=== PATIENT | female | born 1940 | race American Indian/Alaskan Native ===

== ENCOUNTER 2016-07-20 11:50 | Outpatient (CLI) | payer MEDICARE ==
--- NOTE | 2016-07-20 15:11 | Ultrasound Report ---
Thyroid ultrasound. History: The patient has a history of previous thyroid radiation. There are no prior studies available for comparison. Findings: The thyroid gland is quite small. The right lobe measures 3.7 x 0.8 x 0.7 cm. The left lobe measures 2.8 x 0.8 x 0.6 cm. No masses or other significant findings are seen. Impression: Thyroid atrophy with no focal abnormalities.
== END 2016-07-20 11:51 | disposition home or self-care (01) ==
LOC: SPVIMAG 11:50
PROVIDERS: ATTEND Internal Medicine Hematology & Oncology
DX: E03.4 Atrophy of thyroid (acquired) (principal)
CPT/HCPCS: 76536

== ENCOUNTER 2016-07-24 14:07 | Outpatient (CLI) | payer MEDICARE ==
--- NOTE | 2016-07-24 15:00 | XRay Report ---
Right shoulder 3 views: History: Right shoulder pain. Findings: Arthritic changes are noted at the a.c. joint and inferior aspect of the glenohumeral joint. No fracture dislocation or soft tissue calcification. Impression: Arthritic changes a.c. joint and glenohumeral joint.
== END 2016-07-24 14:08 | disposition home or self-care (01) ==
LOC: SPVWC 14:07
PROVIDERS: ATTEND Internal Medicine Hematology & Oncology
DX: M25.511 Pain in right shoulder (principal)

== ENCOUNTER 2016-11-06 10:14 | Outpatient (CLI) | payer MEDICARE ==
--- NOTE | 2016-11-06 14:27 | Mammography Report ---
BILATERAL DIGITAL SCREENING MAMMOGRAM with CAD: 11/06/16 10:14:00 CLINICAL: Routine screening. COMPARISON:03/16/15 FINDINGS: The breasts are heterogeneously dense, which may obscure small masses. No mass, architectural distortion or suspicious calcifications. IMPRESSION: No mammographic evidence of malignancy. BI-RADS CATEGORY: 1 - - Negative RECOMMENDATION: Routine mammographic screening in one year. COMMENT: Patient follow-up letters are generated by our [employer] application.
== END 2016-11-06 10:15 | disposition home or self-care (01) ==
LOC: SPVWC 10:14
PROVIDERS: ATTEND Internal Medicine Hematology & Oncology
DX: Z12.31 Encounter for screening mammogram for malignant neoplasm of breast (principal)
CPT/HCPCS: 77067; G0202

== ENCOUNTER 2017-12-27 07:12 | Outpatient (CLI) | payer MEDICARE ==
--- NOTE | 2017-12-27 09:22 | Ultrasound Report ---
ULTRASOUND ABDOMEN COMPLETE: TECHNIQUE: Transabdominal ultrasound with color Doppler interrogation. HISTORY: Gallbladder disease, nausea. COMPARISON: none. FINDINGS: LIVER: Normal. BILIARY SYSTEM: There appears to be trace sludge in the gallbladder. No evidence for shadowing gallstones, dilatation, wall thickening or pericholecystic fluid. The CBD measures 3 mm. PANCREAS: Normal. SPLEEN: Normal. KIDNEYS: A 2.2 x 2.6 cm exophytic cyst is noted in the superior right kidney. Otherwise, the kidneys are within normal limits. No evidence for nephrolithiasis or hydronephrosis. AORTA/IVC: Normal. ASCITES: None. IMPRESSION: Trace sludge in the gallbladder. 2.2 x 2.6 cm right renal cyst.
== END 2017-12-27 07:13 | disposition home or self-care (01) ==
LOC: US 07:12
PROVIDERS: ATTEND Internal Medicine Hematology & Oncology
DX: N28.1 Cyst of kidney, acquired (principal); K82.9 Disease of gallbladder, unspecified; R11.0 Nausea
CPT/HCPCS: 76700

== ENCOUNTER 2019-01-30 09:56 | Outpatient (CLI) | payer MEDICARE ==
--- NOTE | 2019-01-30 11:37 | Vascular Lab Report ---
RIGHT UPPER EXTREMITY VENOUS DOPPLER ULTRASOUND HISTORY: Upper extremity pain and swelling. Localized mass or lump in right upper extremity. COMPARISON: None. TECHNIQUE: Grayscale, color and spectral Doppler imaging of the venous system of the right upper extr emity was performed. FINDINGS: Internal Jugular Vein: Normal grayscale appearance and flow. Subclavian Vein: Normal grayscale appearance and flow. Axillary Vein: Normal venous flow, compressibility and augmentation. Brachial vein: Normal venous flow, compressibility and augmentation. Basilic vein: Normal venous flow, compressibility and augmentation. Cephalic vein: Normal venous flow, compressibility and augmentation. Additional Findings: A 1.5 x 0.6 x 0.6 cm ill-defined masslike lesion is identified in the distal bic eps region. Internal echogenicity is similar to surrounding fat suggesting this is a lipoma. IMPRESSION: 1. No sonographic evidence of deep venous thrombosis in the right upper extremity. 2. Small lipoma. Signer Name: Sami Escobar Jr, MD Signed: 01/30/2019 11:33 AM Workstation Name: [id number]
== END 2019-01-30 09:57 | disposition home or self-care (01) ==
LOC: VAS 09:56
PROVIDERS: ATTEND Internal Medicine Hematology & Oncology
DX: D17.9 Benign lipomatous neoplasm, unspecified (principal)

== ENCOUNTER 2019-04-08 15:42 | Outpatient (CLI) | payer MEDICARE ==
--- NOTE | 2019-04-08 16:26 | XRay Report ---
CHEST 2 VIEWS INDICATION: COUGH. COMPARISON: 04/16/2018 FINDINGS: Support devices: None. Heart: Within normal limits. Lungs/pleura: No acute air space or interstitial disease. No pneumothorax. Additional findings: None. IMPRESSION: Unremarkable chest films. Signer Name: Sami Escobar Jr, MD Signed: 04/08/2019 4:21 PM Workstation Name: [id number]
--- NOTE | 2019-04-08 16:29 | XRay Report ---
BILATERAL SHOULDERS, 3 VIEWS INDICATION: Bilateral shoulder pain. COMPARISON: None. IMPRESSION: Borderline bone mineralization. Mild osteoarthritic changes are identified at both gleno humeral joints and acromioclavicular joints. There is no evidence for fracture, dislocation or bone l esion. Soft tissue calcification lateral to the left humeral head probably represents calcific tendin osis. The remaining soft tissues are unremarkable. Signer Name: Sami Escobar Jr, MD Signed: 04/08/2019 4:25 PM Workstation Name: [id number]
== END 2019-04-08 15:43 | disposition home or self-care (01) ==
LOC: SPVIMAG 15:42
PROVIDERS: ATTEND Internal Medicine Hematology & Oncology
DX: R05 Cough (principal); M19.012 Primary osteoarthritis, left shoulder; M19.011 Primary osteoarthritis, right shoulder; M25.512 Pain in left shoulder; M25.511 Pain in right shoulder
CPT/HCPCS: 71046

== ENCOUNTER 2019-04-18 09:15 | Outpatient (CLI) | payer OTHER | END 2019-04-18 09:16 | disposition home or self-care (01) | LOC: ECHO 09:15 | PROVIDERS: ATTEND Internal Medicine Hematology & Oncology | DX: I07.1 Rheumatic tricuspid insufficiency (principal); H53.8 Other visual disturbances; M85.80 Other specified disorders of bone density and structure, unspecified site | CPT/HCPCS: 93306 ==

== ENCOUNTER 2019-04-22 09:49 | Outpatient (CLI) | payer MEDICARE, OTHER ==
--- NOTE | 2019-04-22 14:44 | Mammography Report ---
BONE DEXA. History: HX OF OSTEOPENIA Procedure: 2 site bone densitometry performed on a Hologic scanner. Comparison: None Findings: The BMD of the lumbar spine is 0.947 gm/cm2 with a T-score of -0.9 and a Z-score of +0.9 . The BMD of the total left hip is 0.859 gm/cm2 with a T-score of -0.7 and a Z-score of +0.3. IMPRESSION: WHO Classification: Normal with average fracture risk based on both based on lumbar spine and left hi p measurements. The FRAX 10 year fracture probability for a major osteoporotic fracture is 4.7%. The FRAX 10 year fracture probability for hip fracture is 0.8%. Note:FRAX version 3.01. Fracture probability calculated for an untreated patient. Fracture probabilit y may be lower if the patient has received treatment. RECOMMENDATION: Clinical correlation and routine screening. Definitions: BMD = Bone Mineral Density T score = BMD related to mean peak bone mass of young adult ([place] expressed an standard deviation) Z score = Age-matched BMD expressed in SD World health organization (WHO) diagnostic criteria: Normal: T score greater than -1 SD. Osteopenia: T score between - SD and -2.4 SD. Osteoporosis: T score -2.5 SD or below Note: BMD is not the only risk factor for fracture; also consider factors such as the patient's age, risk of falling, previous osteoporotic fracture, family history of osteoporotic fractures, smoking st atus and low body weight. All treatment decisions require clinical judgment and consideration of individual patient factors inc luding patient preferences, comorbidities, previous drug use and risk factors not captured in the FRA X model (e.g. Frailty, falls, vitamin D deficiency, increased bone turnover, interval significant dec line in BMD). A more detailed DEXA Bone Densitometry report is available upon request. Signer Name: Uzair Kelly MD Signed: 04/22/2019 2:40 PM Workstation Name: [id number]
--- NOTE | 2019-04-22 15:55 | Vascular Lab Report ---
. BILATERAL CAROTID DOPPLER ULTRASOUND INDICATION : H53.8)Other visual disturbances TECHNIQUE: Grayscale and color Doppler imaging performed through the neck. COMPARISON: None FINDINGS: Right: There is no significant atherosclerotic disease. Peak systolic velocity in the CCA is 56 cm/ s with end-diastolic velocity of 15 cm/s. Peak systolic velocity in the proximal ICA is 73 cm/s with end-diastolic velocity of 24 cm/s. ICA to CCA ratio is less than 2. There is antegrade flow in the E CA and the vertebral artery. Left: There is no significant atherosclerotic disease. Peak systolic velocity in the CCA is 57 cm/s w ith end-diastolic velocity of 15 cm/s. Peak systolic velocity in the proximal ICA is 60 cm/s with end -diastolic velocity of 20 cm/s. ICA to CCA ratio is less than 2. There is antegrade flow in the ECA and the vertebral artery. IMPRESSION: No hemodynamically significant stenosis by NASCET criteria. Signer Name: Sami Escobar Jr, MD Signed: 04/22/2019 3:51 PM Workstation Name: [id number]
== END 2019-04-22 09:50 | disposition home or self-care (01) ==
LOC: MAMMO 09:49
PROVIDERS: ATTEND Internal Medicine Hematology & Oncology
DX: H53.8 Other visual disturbances (principal); R55 Syncope and collapse; M85.88 Other specified disorders of bone density and structure, other site
CPT/HCPCS: 77080; 93880

== ENCOUNTER 2020-03-03 10:50 | Outpatient (CLI) | payer MEDICARE ==
--- NOTE | 2020-03-03 15:06 | XRay Report ---
THORACIC SPINE 3 VIEWS INDICATION: PAIN. COMPARISON: None. IMPRESSION: Borderline to mild osteopenia is suspected. Normal alignment. Mild degenerative disc dis ease is identified in the mid to lower thoracic spine. No acute osseous or soft tissue abnormality. LUMBOSACRAL SPINE 3 VIEWS INDICATION: PAIN. COMPARISON: None. IMPRESSION: Borderline to mild osteopenia is suspected. Normal alignment. Mild anterior spurring is noted at L2-3, L3-4 and L4-5. Mild diffuse facet arthropathy. L4-5 appears to be the most affected le anthony. There are mild symmetric degenerative changes at the SI joints. No acute osseous or soft tissue abnormality. Signer Name: Sami Escobar Jr, MD Signed: 03/03/2020 3:02 PM Workstation Name: [id number]
== END 2020-03-03 10:51 | disposition home or self-care (01) ==
LOC: SPVIMAG 10:50
PROVIDERS: ATTEND Internal Medicine Hematology & Oncology
DX: M51.34 Other intervertebral disc degeneration, thoracic region (principal); M47.816 Spondylosis without myelopathy or radiculopathy, lumbar region; M46.06 Spinal enthesopathy, lumbar region
CPT/HCPCS: 72070; 72100

== ENCOUNTER 2020-04-21 11:48 | Outpatient (CLI) | payer MEDICARE ==
--- NOTE | 2020-04-21 13:42 | XRay Report ---
CLINICAL DATA: ANKLE PAIN TECHNICAL DATA: 2 views of the ankle were obtained in the AP, lateral FINDINGS: There is no acute fracture, dislocation, or subluxation. There is no joint effusion or soft tissue sw elling. The tibial plafond, ankle mortise, and talar dome are intact. IMPRESSION: No acute radiographic abnormality. Signer Name: Keo Doss MD Signed: 04/21/2020 1:37 PM Workstation Name: [id number]
== END 2020-04-21 11:49 | disposition home or self-care (01) ==
LOC: SPVIMAG 11:48
PROVIDERS: ATTEND Internal Medicine Hematology & Oncology
DX: M25.572 Pain in left ankle and joints of left foot (principal)

== ENCOUNTER 2021-02-24 08:51 | Outpatient (CLI) | payer MEDICARE ==
--- NOTE | 2021-02-24 13:05 | Ultrasound Report ---
ULTRASOUND PELVIS INDICATION / CLINICAL INFORMATION: ABDOMINAL DISTENSION/UNSPECIFIED ABDOMINAL PAIN. TECHNIQUE: Transabdominal. The patient refused transvaginal imaging. Duplex Color Doppler used: Yes. COMPARISON: None available FINDINGS: The uterus is surgically absent. Neither ovary is identified. No significant adnexal abnormality. URINARY BLADDER: No significant abnormality. FREE FLUID: None. ADDITIONAL FINDINGS: None. IMPRESSION: 1. Prior hysterectomy. Neither ovary is identified. No sonographic abnormality of the pelvis. Scribed by: Nu Riggins RDMS, RVT Scribed: 02/24/2021 11:59 AM I have reviewed the images, agree with this report, and edited this report as needed. Signer Name: Hardy Newton MD Signed: 02/24/2021 1:01 PM Workstation Name: [id number]
--- NOTE | 2021-02-24 13:06 | Ultrasound Report ---
ULTRASOUND ABDOMEN, COMPLETE INDICATION / CLINICAL INFORMATION: ABDOMINAL DISTENSION/UNSPECIFIED ABDOMINAL PAIN. COMPARISON: Abdominal ultrasound 03/23/2020. FINDINGS: PANCREAS: No significant abnormality. ABDOMINAL AORTA: No significant abnormality. IVC: No significant abnormality. LIVER: The liver is normal in size measuring 11.7 cm . No evidence of focal hepatic lesion . Normal h epatopedal blood flow within the main portal vein. GALLBLADDER: No significant abnormality. BILE DUCTS: No significant abnormality. Common bile duct measures 3 mm. KIDNEYS: Right: The right kidney is incompletely visualized due to overlying bowel gas and measures a pproximately 7.8 cm. Simple appearing cyst measuring 3.3 x 3.2 x 2.9 cm, previously 3.0 x 3.2 x 2.6 c m. Left: The left kidney measures 10.0 cm. Mild pelviectasis. SPLEEN: The spleen measures 7.4 cm. No significant abnormality. FREE FLUID: None. ADDITIONAL FINDINGS: None. IMPRESSION: 1. Right renal cyst appears similar to prior exam. 2. Mild left pelviectasis without toñito hydronephrosis. Scribed by: Nu Riggins RDMS, RVT Scribed: 02/24/2021 11:51 AM I have reviewed the images, agree with this report, and edited this report as needed. Signer Name: Hardy Newton MD Signed: 02/24/2021 1:01 PM Workstation Name: [id number]
== END 2021-02-24 08:52 | disposition home or self-care (01) ==
LOC: SPVIMAG 08:51
PROVIDERS: ATTEND Internal Medicine Hematology & Oncology
DX: N28.1 Cyst of kidney, acquired (principal); R14.0 Abdominal distension (gaseous); Z90.710 Acquired absence of both cervix and uterus
CPT/HCPCS: 76700; 76856

== ENCOUNTER 2021-10-20 10:09 | Outpatient (CLI) | payer MEDICARE ==
--- NOTE | 2021-10-20 11:39 | XRay Report ---
LEFT ANKLE 3 VIEWS 1017 INDICATION: PAIN IN LEFT ANKLE COMPARISON: 04/21/2020 FINDINGS: No soft tissue swelling is seen. No fractures or dislocations are noted. Calcaneal spurring is unchanged. Signer Name: Magan Bruno MD Signed: 10/20/2021 11:34 AM Workstation Name: [id number]
--- NOTE | 2021-10-20 15:02 | Ultrasound Report ---
ULTRASOUND THYROID INDICATION / CLINICAL INFORMATION: R60.9. Swelling COMPARISON: Thyroid ultrasound 07/20/2016. FINDINGS: RIGHT LOBE: Size (cm) = 1.6 x 0.4 x 0.5 cm. LEFT LOBE: Size (cm) = 1.7 x 0.7 x 0.4 cm. ISTHMUS: Thickness (cm) = 0.2 cm. APPEARANCE: Normal. SMALL NODULES < 1 cm: None. NODULES >= 1 cm or SUSPICIOUS FEATURES (up to 4): None. LYMPH NODES: No abnormal lymph nodes. PARATHYROID GLANDS: No abnormal parathyroid glands. ADDITIONAL FINDINGS: None. IMPRESSION: 1. Diminutive thyroid bilaterally. No suspicious thyroid nodules. 2. No additional abnormality. ACR TI-RADS Thyroid Nodule Recommendations TI-RADS 1 (0 pts) -- BENIGN. - No Fine Needle Aspirate biopsy (FNA) or follow-up. TI-RADS 2 (1-2 pts) -- NOT SUSPICIOUS. - No FNA or follow-up. TI-RADS 3 (3 pts) -- MILDLY SUSPICIOUS. - >= 2.5 cm: FNA. - 1.5-2.4 cm: Follow up at 1, 3, 5 years. - < 1.5 cm: No follow up. TI-RADS 4 (4-6 pts) -- MODERATELY SUSPICIOUS. - >= 1.5 cm: FNA. - 1.0-1.4 cm: Follow up at 1, 2, 3, 5 years. - < 1.0 cm: No follow up. TI-RADS 5 (7+ pts) -- HIGHLY SUSPICIOUS. - >= 1.0 cm: FNA. - 0.5-0.9 cm: Follow annually for 5 years. - 0.5 cm: No follow up. REFERENCE: ACR Thyroid Imaging, Reporting and Data System (TI-RADS): White Paper of the ACR TI-RADS C ommittee. J AM Fouzia Radiol 2017;14:587-595. NOTE: Nodules < 1 cm do not typically require follow-up or FNA unless there are suspicious features. NOTE: Nodule size maximum dimension determines whether a given lesion should be biopsied or followed. NOTE: If multiple nodules meet criteria for FNA, only the two (2) most suspicious nodules should be b iopsied. In addition, FNA of any suspicious cervical nodes should be biopsied. NOTE: Predominantly Cystic nodules and Spongiform nodules, composed predominantly (>50%) of small cys tic spaces, are considered benign (TI-RADS 1) regardless of other criteria. Scribed by: Nu Riggins RDMS, VICKI, LENY Scribed: 10/20/2021 12:02 PM I have reviewed the images, agree with this report, and edited this report as needed. Signer Name: Magan Bruno MD Signed: 10/20/2021 2:57 PM Workstation Name: [id number]
== END 2021-10-20 10:10 | disposition home or self-care (01) ==
LOC: US 10:09
PROVIDERS: ATTEND Internal Medicine Hematology & Oncology
DX: R60.9 Edema, unspecified (principal)
CPT/HCPCS: 76536